=== PATIENT | female | born 1940 | race Caucasian/White ===

== ENCOUNTER 2018-06-16 08:38 | Observation (INO) ==
[2018-06-16] MEDS ORDERED: 0.9 % Sodium Chloride 1,000 ML IVC ONE (08:58)
[2018-06-16] MEDS ORDERED: Ondansetron 4 MG/2 ML VIAL IVP ONE (08:58)
--- NOTE | 2018-06-16 09:09 | Emergency Department Note ---
Disposition Clinical Impression: Colitis Disposition: Admitted As Inpatient Condition: Good Prescriptions: Amoxicillin/Clavulanate [Augmentin] 875 mg PO BIDWM 10 Days tablet Time of Disposition: 11:40 Nausea/Vomiting/Diarrhea HPI - General Chief complaint: ED Nausea/Vomiting/Diarrhea Stated complaint: Diarrhea Time Seen by Provider: 06/16/18 08:40 Source: patient, family Mode of arrival: private vehicle Limitations: no limitations Nursing Notes Reviewed: Yes Vital Signs Reviewed: Yes - History of Present Illness HPI Narrative: Ms. Coreas is a pleasant 78 yo F. she presents the emergency room with a chief complaint of diarrhea 4 days. She states that she was treated at [facility] on Sunday 8 plain films to labs noted that she was constipated in her ascending colon and prescribed her MiraLAX. Patient notes that she started having abdominal pain yesterday and notes the abdominal pain is slightly lower than her umbilical area. She denies radiation of her pain either into her belly or to her back. She notes that she is mildly nauseous however denies vomiting or fevers. Asked medical history includes hypertension and diabetes type 2. She has not taken any of her medication today. Pt Subjective Complaint: nausea, diarrhea, abdominal pain Onset (ago): day(s) Description of emesis: blood-streaked, other (mucosy) Description of Diarrhea: mucous - Related Data Previous Rx's Medication Instructions Recorded Amoxicillin/Clavulanate [Augmentin] 875 mg PO BIDWM 10 Days tablet 06/16/18 Allergies Allergy/AdvReac Type Severity Reaction Status Date / Time Sulfa (Sulfonamide Allergy Hives Verified 06/16/18 09:00 Antibiotics) All systems ED: reviewed and negative except as stated. Review of Systems: As Per HPI Physical Exam - General Limitations: physical limitation (Family notes that she is normally ambulatory without any help, however in the ED today, she requires assistance to walk and appears unstable on her feet. ), other General appearance: alert - Head Head exam: atraumatic - Eye Eye exam: Present: normal appearance - ENT ENT exam: normal exam - Neck Neck exam: Present: normal inspection - Chest Chest inspection: Present: normal inspection - Respiratory Respiratory exam: Present: normal lung sounds bilaterally - Cardiovascular Cardiovascular exam: Present: regular rate - Abdominal Exam Abdominal exam: Present: tenderness (tenderness generalized, grimace noted with palpation around umbilical area. Obese abdomen. ), normal bowel sounds - Rectal Exam Rectal exam: Present: deferred - Extremities Exam Extremities exam: Absent: pedal edema, joint swelling, calf tenderness - Expanded Lower Extremity Exam Hip/Pelvis exam: Present: normal inspection - Back Exam Back exam: Present: normal inspection (no breaks to skin) - Neurological Exam Neurological exam: Present: alert, oriented X3 - Psychiatric Psychiatric exam: Present: normal affect, depressed (tearful at times) Course Course Narrative: 9:30 - recheck, reviewed ortho static vital signs, patient able to ambulate although with assistance from staff. Daughters at bedside note that she is slower than normal and "a little shakier" than normal. 10:!5 - recheck, patient in CT. 11:15 - recheck, patient resting talking with family. Review of CT with family. Family requests admission. While they feel that they can take care of her at home, they are concerned with the round the clock care that she may need. Additionally, they note that she is less mobile than she was earlier this week and are concerned about ambilation. Will request admission due to colitis on CT and request PT consult while patient is admitted. 11:50 - recheck, patient continues to rest in bed. Discussed admission, Dr. Jurado accepting for Obs. Antibiotics started in the ED. 12:30 - recheck, pateint continues to rest and talk with family at bedside. Vital Signs Temperature 98.5 F 06/16/18 08:40 Pulse Rate 105 06/16/18 08:40 Respiratory Rate 18 06/16/18 08:40 Blood Pressure 153/81 06/16/18 08:40 O2 Sat by Pulse Oximetry 96 06/16/18 08:40 Temperature 98.5 F 06/16/18 08:40 Pulse Rate 93 06/16/18 09:04 Respiratory Rate 20 06/16/18 09:04 Blood Pressure 142/65 06/16/18 09:04 O2 Sat by Pulse Oximetry 97 06/16/18 09:05 Oxygen Delivery Oxygen Delivery Room Air
[2018-06-16 09:41] LABS: Basophils % 0.3 %; Eosinophils # 0.1 K/mcL (0.0-0.6); Hematocrit 37.7 % (35.3-44.9); Hemoglobin 13.2 g/dL (11.5-15.4); Immature Granulocytes % 0.4 % (0-4); Lymphocytes # 1.4 K/mcL (0.6-4.6); Lymphocytes % 11.6 %; Mean Corpuscular Hemoglobin 30.8 pg (28.0-33.3); Mean Corpuscular Volume 87.9 fL (83.0-100.0); Mean Platelet Volume 9.9 fL (9.4-12.4); Monocytes % 8.1 %; Neutrophils # 9.3 K/mcL (1.6-8.9); Platelet Count 186 K/mcL (140-400); Red Blood Count 4.29 M/mcL (3.82-4.97); Red Cell Distribution Width 11.9 % (11.5-14.5); Segmented Neutrophils % 78.6 %
[2018-06-16 09:58] LABS: Alanine Aminotransferase 8 Units/L (7-52); Alkaline Phosphatase 55 Units/L (34-104); Aspartate Amino Transferase 11 Units/L (13-39); BUN/Creatinine Ratio 20 (6-26); Bilirubin,Total 0.5 mg/dL (0.3-1.0); Blood Urea Nitrogen 11 mg/dL (8-23); Calcium 8.4 mg/dL (8.6-10.3); Carbon Dioxide 27 mEq/L (23-29); Chloride 98 mEq/L (98-107); Globulin 3.1 g/dL (2.4-3.5); Glucose 224 mg/dL (70-105); Lipase 4 Units/L (11-82); Osmolality,Calculated 282 (280-300); Potassium 3.6 mEq/L (3.5-5.1); Sodium 133 mEq/L (136-145); Total Protein 6.1 g/dL (6.4-8.9); eGFR For Non-African Americans > 60 (> 60)
--- NOTE | 2018-06-16 13:35 | Emergency Department Note ---
Disposition Clinical Impression: Colitis Disposition: Admitted As Inpatient Condition: Good General Adult HPI - General Chief complaint: ED Nausea/Vomiting/Diarrhea Stated complaint: Diarrhea Time Seen by Provider: 06/16/18 08:40 Source: patient, family Mode of arrival: private vehicle Limitations: physical limitation (Family notes that she is normally ambulatory without any help, however in the ED today, she requires assistance to walk and appears unstable on her feet. ), other - History of Present Illness Pain Scale: 6 - Related Data Previous Rx's Medication Instructions Recorded Amoxicillin/Clavulanate [Augmentin] 875 mg PO BIDWM 10 Days tablet 06/16/18 Allergies Allergy/AdvReac Type Severity Reaction Status Date / Time Sulfa (Sulfonamide Allergy Hives Verified 06/16/18 13:29 Antibiotics) Past Medical History - Past Medical History Medical history: Reports: diabetes, hyperlipidemia, hypertension Psychiatric history: Reports: anxiety, bipolar, depression LABORATORY ASSISTANT history: Reports: no LABORATORY ASSISTANT history - Social History Smoking Status: Never smoker Smokeless Tobacco Status: No Alcohol use: Reports: none Drug use: Reports: none Physical Exam - General Limitations: physical limitation (Family notes that she is normally ambulatory without any help, however in the ED today, she requires assistance to walk and appears unstable on her feet. ), other General appearance: alert Course Vital Signs Temperature 98.5 F 06/16/18 08:40 Pulse Rate 105 06/16/18 08:40 Respiratory Rate 18 06/16/18 08:40 Blood Pressure 153/81 06/16/18 08:40 O2 Sat by Pulse Oximetry 96 06/16/18 08:40 Temperature 98.5 F 06/16/18 09:06 Pulse Rate 98 06/16/18 09:23 Respiratory Rate 20 06/16/18 12:39 Blood Pressure 160/64 06/16/18 12:39 O2 Sat by Pulse Oximetry 97 06/16/18 09:06 Oxygen Delivery Oxygen Delivery Room Air Medical Decision Making - Lab Data Result diagrams: 06/16/18 08:58 06/16/18 08:58 Lab Results 06/16/18 06/16/18 Range/Units 08:58 08:58 WBC 11.8 H (4.3-11.1) K/mcL RBC 4.29 (3.82-4.97) M/mcL Hgb 13.2 (11.5-15.4) g/dL Hct 37.7 (35.3-44.9) % MCV 87.9 (83.0-100.0) fL MCH 30.8 (28.0-33.3) pg MCHC 35.0 (31.6-35.5) g/dL RDW 11.9 (11.5-14.5) % Plt Count 186 (140-400) K/mcL MPV 9.9 (9.4-12.4) fL Immature Gran % 0.4 (0-4) % Seg Neutrophils % 78.6 % Lymphocytes % 11.6 % Monocytes % 8.1 % Eosinophils % 1.0 % Basophils % 0.3 % Neutrophils # 9.3 H (1.6-8.9) K/mcL Lymphocytes # 1.4 (0.6-4.6) K/mcL Monocytes # 1.0 (0.0-1.3) K/mcL Eosinophils # 0.1 (0.0-0.6) K/mcL Basophils # 0.0 (0.0-0.2) K/mcL Sodium 133 L (136-145) mEq/L Potassium 3.6 (3.5-5.1) mEq/L Chloride 98 (98-107) mEq/L Carbon Dioxide 27 (23-29) mEq/L BUN 11 (8-23) mg/dL Creatinine 0.56 L (0.60-1.20) mg/dL Est GFR ( Amer) > 60 (> 60) Est GFR (Non-Af Amer) > 60 (> 60) BUN/Creatinine Ratio 20 (6-26) Glucose 224 H (70-105) mg/dL Calculated Osmolality 282 (280-300) Calcium 8.4 L (8.6-10.3) mg/dL Total Bilirubin 0.5 (0.3-1.0) mg/dL AST 11 L (13-39) Units/L ALT 8 (7-52) Units/L Alkaline Phosphatase 55 (34-104) Units/L Serum Total Protein 6.1 L (6.4-8.9) g/dL Albumin 3.0 L (3.5-5.7) g/dL Globulin 3.1 (2.4-3.5) g/dL Albumin/Globulin Ratio 1.0 L (1.1-2.2) Lipase 4 L (11-82) Units/L Attestation Statement - Attestation Attestation: I have personally performed a face to face evaluation on this patient. I have reviewed and agree with the care plan. History and Exam by me shows: I separately interviewed and examined the patient. She has had several days of diarrhea, and has been weak to the point of being impaired in activities of daily living. I reviewed her workup, showing colitis, and agree with the treatment and plan.
[2018-06-16] MEDS ORDERED: *HR* HYDROcodone/Acet 5/325 mg TABLET PO PRN (14:47)
[2018-06-16] MEDS ORDERED: Acetaminophen 325 MG TABLET PO PRN (14:47)
[2018-06-16] MEDS ORDERED: *HR* OxyCODONE Immed Rel 5 MG TABLET PO PRN (14:47)
[2018-06-16] MEDS ORDERED: Naloxone 0.4 MG/ML INJ IVP PRN (14:47)
[2018-06-16] MEDS: Ertapenem 1,000 MG in 0.9 % Sodium Chloride Mini Bag 100 ML IVPB SCH (14:53)
--- NOTE | 2018-06-16 15:55 | Internal Med History&Physical ---
Date of Encounter: 06/16/18 Time of Encounter: 15:40 Internal Medicine - H&P: HPI Chief complaint: diarrhea Admitted From: Emergency Dept Plans for Post Hospital Care: Home History of present illness: Ms. Coreas is a 78 year old female with known PMH of HTN,HLD, DM2 pt presented to ER with a chief complaint of diarrhea 4 days. She also c/o lower abdominal pain started since y/d. Denied any radiation of pain. Her pain is more like sharp pain and intermittent. She denied any active abdominal pain now. She does have nausea , denied any vomiting. CT of abd showed colitis extending from splenic flexure into sigmoid colon. Past Med Surg Social Fam HX - Past Medical History Medical history: diabetes, hyperlipidemia, hypertension Psychiatric history: anxiety, bipolar, depression - Past Surgical History Surgical History: cholecystectomy Additional surgical history: left knee bursa repair - Social History Smoking Status: Never smoker Smokeless Tobacco Status: No Alcohol use: none Drug use: none - Family History Mother Hx Family Cancer: Yes (leukemia) Father Hx Family Cancer: Yes Internal Medicine - H&P: Meds Aripiprazole [Abilify] 7.5 mg PO DAILY 06/16/18 [History] Aspirin [Adult Aspirin Regimen] 81 mg PO DAILY 06/16/18 [History] Diltiazem HCl [Cardizem LA] 300 mg PO DAILY 06/16/18 [History] Divalproex (12 HR) [Depakote (12 HR)] 250 mg PO BID 06/16/18 [History] Doxazosin [Cardura] 4 mg PO DAILY 06/16/18 [History] Gabapentin [Neurontin] 300 mg PO BID 06/16/18 [History] Glimepiride [Amaryl] 4 mg PO BID 06/16/18 [History] Lisinopril [Zestril] 40 mg PO QPM 06/16/18 [History] Melatonin 5 mg PO HS 06/16/18 [History] Pravastatin Sodium [Pravachol] 80 mg PO HS 06/16/18 [History] Trazodone HCl 150 mg PO QPM 06/16/18 [History] raNITIdine HCl [Zantac] 150 mg PO HS 06/16/18 [History] Allergy/AdvReac Type Severity Reaction Status Date / Time Sulfa (Sulfonamide Allergy Hives Verified 06/16/18 13:29 Antibiotics) All Systems PM: A 10-system review of systems was performed and is negative for pertinent findings except as documented above in the HPI. Review of systems: All the systems are reviewed everything is benign except the systems and symptoms I mentioned in the history of present illness - Constitutional Vitals: Temp Pulse Resp BP Pulse Ox 98.7 F 102 16 151/82 90 06/16/18 14:21 06/16/18 14:21 06/16/18 14:21 06/16/18 14:21 06/16/18 14:21 General appearance: Present: cooperative, A&O X 3, no acute distress, answers questions appropriately Exam: see below - Head Head exam: Present: atraumatic, normal inspection - Neck Neck exam general surgery: Present: full ROM, supple - Respiratory Respiratory exam: Present: decreased breath sounds. Absent: rales, respiratory distress, rhonchi, wheezes - Cardiovascular Cardiovascular exam: Present: RRR, +S1, +S2. Absent: tachycardia - GI/Abdominal GI/Abdominal exam: Present: normal bowel sounds, soft. Absent: distended, rebound, rigid, tenderness - Extremities Exam Extremities exam: Absent: calf tenderness, pedal edema, tenderness - Back Exam Back exam: Absent: CVA tenderness (L), CVA tenderness (R) - Neurological Exam Neurological exam: Present: alert, oriented X3 - Psychiatric Psychiatric exam: Present: normal affect, normal mood - Skin Skin exam: Absent: rash Internal Med - H&P Results - Labs CBC & Chem 7: 06/16/18 08:58 06/16/18 08:58 Labs: Short CBC 06/16/18 Range/Units 08:58 WBC 11.8 H (4.3-11.1) K/mcL Hgb 13.2 (11.5-15.4) g/dL Hct 37.7 (35.3-44.9) % Plt Count 186 (140-400) K/mcL Neutrophils # 9.3 H (1.6-8.9) K/mcL BMP 06/16/18 08:58 Sodium 133 L Potassium 3.6 Chloride 98 Carbon Dioxide 27 BUN 11 Creatinine 0.56 L Glucose 224 H Calcium 8.4 L Liver Function 06/16/18 Range/Units 08:58 Total Bilirubin 0.5 (0.3-1.0) mg/dL AST 11 L (13-39) Units/L ALT 8 (7-52) Units/L Alkaline Phosphatase 55 (34-104) Units/L Albumin 3.0 L (3.5-5.7) g/dL - Impressions ITS Impressions Abdomen/Pelvis CT 06/16/18 08:59 IMPRESSION: 1. Findings of colitis extending from the splenic flexure into the distal sigmoid colon. An infectious or inflammatory etiology is favored over ischemia. 2. Superimposed severe colonic diverticulosis with no definite findings of acute diverticulitis. 3. A few solid nodules in the right middle and bilateral lower lobes measure up to 0.4 cm, likely benign sequelae of an infectious or inflammatory process. No follow-up is recommended per the Fleischner Society recommendations for solid pulmonary nodules. 4. A few additional incidental findings as above for which no follow-up is recommended. RECOMMENDATIONS: Managing Incidental Adnexal Cystic Mass by CT or MR Benign cyst: Late postmenopausal < or equal to 3 cm: no follow up Kwabena et al. Managing Incidental Findings on Abdominal CT: White Paper of the ACR Incidental Findings Committee. J Am Joyce Radiol 2010;[id number] D/ / Joe Chambers MD / Joe Chambers MD Interpreting Provider: Joe Chambers MD - Assessment and plan (1) Colitis Current Visit: Yes Status: Acute Assessment and plan: Place the pt into Med Surg for observation Reviewed CT of Abd - concerning for acute infectious Colitis started on IV hydration Will check stool GI panel and C. Diff started on empirical abx Cipro and Flagyl Con symptomatic and supportive care Clear liquid diet for today (2) HTN (hypertension) Current Visit: Yes Status: Acute Assessment and plan: stable resumed home meds Qualifiers: Hypertension type: essential hypertension Qualified Code(s): I10 - Essential (primary) hypertension (3) DM2 (diabetes mellitus, type 2) Current Visit: Yes Status: Acute Assessment and plan: started on ISS Qualifiers: Diabetes mellitus correction insulin use: without correction use Diabetes mellitus complication status: without complication Qualified Code(s): E11.9 - Type 2 diabetes mellitus without complications (4) HLD (hyperlipidemia) Current Visit: Yes Status: Acute Assessment and plan: on statin Qualifiers: Hyperlipidemia type: unspecified Qualified Code(s): E78.5 - Hyperlipidemia, unspecified - Time Spent With Patient Total time spent is greater than 50% in coordination of care (as documented) at patient's floor/unit and/or counseling patient:
[2018-06-16] MEDS ORDERED: *HR* Promethazine 25 MG/ML VIAL IVP PRN (15:56)
[2018-06-16] MEDS ORDERED: Ondansetron 4 MG/2 ML VIAL IVP PRN (15:56)
[2018-06-16] MEDS: 0.9 % Sodium Chloride 1,000 ML IVC SCH (17:07)
[2018-06-16] MEDS: MetroNIDAZOLE 500 MG/100 ML 500 MG/100 ML BAG IVPB SCH (17:08)
[2018-06-16] MEDS ORDERED: D5% in Water 1,000 ML IVC PRN (17:40)
[2018-06-16] MEDS ORDERED: Dextrose Gel 15 GM/37.5 ML TUBE PO PRN ×2 (17:40)
[2018-06-16] MEDS ORDERED: *HR* Dextrose 50 % in Water (Syg) 50 ML SYRINGE IVP PRN (17:40)
[2018-06-16] MEDS ORDERED: traZODone 50 MG TABLET PO SCH (18:00)
[2018-06-16] MEDS ORDERED: Lisinopril 20 MG TABLET PO SCH (18:00)
[2018-06-16] MEDS: Gabapentin 300 MG CAPSULE PO SCH (19:54)
[2018-06-16] MEDS: Divalproex (12 HR) 250 MG TABLET PO SCH (19:54)
[2018-06-16] MEDS ORDERED: Insulin LISPRO 300 UNITS/3 ML VIAL SQ SCH (21:00)
[2018-06-16] MEDS ORDERED: Melatonin 3 MG TABLET PO SCH (21:00)
[2018-06-16] MEDS ORDERED: Famotidine 20 MG TABLET PO SCH (21:00)
[2018-06-17] MEDS: MetroNIDAZOLE 500 MG/100 ML 500 MG/100 ML BAG IVPB SCH ×2 (00:19→08:06)
[2018-06-17] MEDS: 0.9 % Sodium Chloride 1,000 ML IVC SCH (04:57)
[2018-06-17 05:31] LABS: Basophils % 0.4 %; Eosinophils # 0.2 K/mcL (0.0-0.6); Hematocrit 32.7 % (35.3-44.9); Immature Granulocytes % 0.7 % (0-4); Lymphocytes # 1.6 K/mcL (0.6-4.6); Mean Corpuscular HGB Conc 34.6 g/dL (31.6-35.5); Mean Corpuscular Hemoglobin 30.5 pg (28.0-33.3); Mean Corpuscular Volume 88.4 fL (83.0-100.0); Mean Platelet Volume 9.9 fL (9.4-12.4); Monocytes # 0.7 K/mcL (0.0-1.3); Monocytes % 9.5 %; Neutrophils # 5.1 K/mcL (1.6-8.9); Platelet Count 182 K/mcL (140-400); Segmented Neutrophils % 66.4 %
[2018-06-17 05:34] LABS: Hemoglobin 11.3 g/dL (11.5-15.4)
[2018-06-17 05:51] LABS: BUN/Creatinine Ratio 20 (6-26); Blood Urea Nitrogen 11 mg/dL (8-23); Calcium 7.9 mg/dL (8.6-10.3); Carbon Dioxide 28 mEq/L (23-29); Chloride 107 mEq/L (98-107); Glucose 109 mg/dL (70-105); Osmolality,Calculated 292 (280-300); Potassium 3.2 mEq/L (3.5-5.1); Sodium 141 mEq/L (136-145); eGFR For Non-African Americans > 60 (> 60)
[2018-06-17] MEDS: Gabapentin 300 MG CAPSULE PO SCH (08:06)
[2018-06-17] MEDS: Divalproex (12 HR) 250 MG TABLET PO SCH (08:06)
[2018-06-17] MEDS: Ertapenem 1,000 MG in 0.9 % Sodium Chloride Mini Bag 100 ML IVPB SCH (08:06)
[2018-06-17] MEDS: Insulin LISPRO 300 UNITS/3 ML VIAL SQ SCH ×2 (08:07→11:33)
[2018-06-17] MEDS ORDERED: Aspirin Enteric Coated 81 MG Tablet PO SCH (09:00)
[2018-06-17] MEDS ORDERED: ARIPiprazole 5 MG TABLET PO SCH (09:00)
[2018-06-17] MEDS ORDERED: Diltiazem CD (24hr) 300 MG CAPSULE PO SCH (09:00)
[2018-06-17 11:30] VITALS: BP 112/62
--- NOTE | 2018-06-17 13:54 | Discharge Summary ---
- NOTES TO OUTPATIENT PROVIDER Notes to Outpatient Provider: f/u with PCP in one week Orders not resulted at time of discharge: Pending orders 06/16/18 08:58 Urinalysis Reflex Cult & Micro [URIN] Stat Date of Encounter: 06/17/18 Time of Encounter: 13:52 - Discharge Diagnosis (1) Colitis Priority: Primary Status: Acute (2) HTN (hypertension) Priority: Secondary Status: Acute Qualifiers: Hypertension type: essential hypertension Qualified Code(s): I10 - Essential (primary) hypertension (3) DM2 (diabetes mellitus, type 2) Priority: Secondary Status: Acute Qualifiers: Diabetes mellitus superintendent distribution insulin use: without fci use Diabetes mellitus complication status: without complication Qualified Code(s): E11.9 - Type 2 diabetes mellitus without complications (4) HLD (hyperlipidemia) Priority: Secondary Status: Acute Qualifiers: Hyperlipidemia type: unspecified Qualified Code(s): E78.5 - Hyperlipidemia, unspecified Hospital course: Ms. Coreas is a 78 year old female with known PMH of HTN,HLD, DM2 pt presented to ER with a chief complaint of diarrhea 4 days. She also c/o lower abdominal pain started since y/d. Denied any radiation of pain. Her pain is more like sharp pain and intermittent. She denied any active abdominal pain now. She does have nausea , denied any vomiting. CT of abd showed colitis extending from splenic flexure into sigmoid colon. Pt was admitted in the hospital and started her empirical abx Cipro and Flagyl. Her diarrhea resolved. She is able tolerate PO intake well. Talked to the pt's family at bed side and explained to them about current care. Waiting on PT / OT eval, will d/c her with PT / OT recommendations - Time Spent with Patient Total time spent providing and/or coordinating discharge services: - Discharge Medications Home Medications: Aripiprazole [Abilify] 7.5 mg PO DAILY 06/16/18 [History] Aspirin [Adult Aspirin Regimen] 81 mg PO DAILY 06/16/18 [History] Diltiazem HCl [Cardizem LA] 300 mg PO DAILY 06/16/18 [History] Divalproex (12 HR) [Depakote (12 HR)] 250 mg PO BID 06/16/18 [History] Doxazosin [Cardura] 4 mg PO DAILY 06/16/18 [History] Gabapentin [Neurontin] 300 mg PO BID 06/16/18 [History] Glimepiride [Amaryl] 4 mg PO BID 06/16/18 [History] Lisinopril [Zestril] 40 mg PO QPM 06/16/18 [History] Melatonin 5 mg PO HS 06/16/18 [History] Pravastatin Sodium [Pravachol] 80 mg PO HS 06/16/18 [History] Trazodone HCl 150 mg PO QPM 06/16/18 [History] raNITIdine HCl [Zantac] 150 mg PO HS 06/16/18 [History] Allergies/Adverse Reactions: Allergy/AdvReac Type Severity Reaction Status Date / Time Sulfa (Sulfonamide Allergy Hives Verified 06/16/18 13:29 Antibiotics) Date of admission: 06/16/18 12:33 Primary care physician: Jesus Carlos MD Consults: 06/17/18 10:58 Consult to Physical Therapy [CONS] Routine Comment: Evaluate, develop and implement POC Reason for Consult: weakness Does patient have active BEDREST order?: No Is patient medically & hemodynamically stable?: Yes Patient assessed for mobility or mobilized this visit?: Yes 06/17/18 10:59 Consult to Occupational Therapy [CONS] Routine Comment: Evaluate, develop and implement POC Reason for Consult: wekaness Does patient have active BEDREST order?: No Is patient medically & hemodynamically stable?: Yes Patient assessed for mobility or mobilized this visit?: Yes - Constitutional Vitals: Temp Pulse Resp BP Pulse Ox 97.7 F 92 16 112/62 98 06/17/18 11:28 06/17/18 11:28 06/17/18 11:28 06/17/18 11:28 06/17/18 11:28 General appearance: Present: cooperative, A&O X 3, no acute distress, answers questions appropriately Exam: see below - Head Head exam: Present: atraumatic, normal inspection - Respiratory Respiratory exam: Present: decreased breath sounds. Absent: rales, respiratory distress, rhonchi, wheezes - Cardiovascular Cardiovascular exam: Present: RRR, +S1, +S2. Absent: tachycardia - GI/Abdominal GI/Abdominal exam: Present: normal bowel sounds, soft. Absent: rebound, rigid, tenderness - Extremities Exam Extremities exam: Absent: calf tenderness, pedal edema, tenderness - Back Exam Back exam: Absent: CVA tenderness (L), CVA tenderness (R) - Neurological Exam Neurological exam: Present: alert, oriented X3 - Psychiatric Psychiatric exam: Present: normal affect, normal mood - Patient Status Disposition: Home, Self-Care Condition: Good - Discharge Instructions Follow Up With: Jesus Carlos MD [Primary Care Provider] - 06/20/18 2:00 pm - Diet and Activity Activity: increase activity as tolerated Diet: low salt diet
== END 2018-06-17 15:47 | disposition home or self-care (01) ==
LOC: 3ANU 08:38 → EMEROOARM 08:38 → 3ANU 14:01 → 3BNU 16:15
PROVIDERS: ADMIT Internal Medicine Nephrology; ATTEND Internal Medicine Nephrology